=== PATIENT | male | born 1970 | race Caucasian/White ===

== ENCOUNTER 2016-05-28 13:56 | Emergency (ER) | payer MEDICARE, MEDICAID ==
[~2016-05-28 13:56] MED LIST: ASPI81TA85 PO; BACL-67 PO; DICL500C PO; DICLOFENAC PO; DULO30CA PO; EUCECRE2 EX; HEPA10PFSY IV; KLOR10TA5 PO; LASI40TA PO; NICO14PA EXT; OXYC15TA76 PO; PERCOCET PO; POTA10TA PO; TOPA100T8 PO; TOPA25TA10 PO; TOPA50TA7 PO; TYLE325T5 PO; WELL100T PO; [UNRECOGNIZED DRUG - REMARK] PO
[2016-05-28 15:35] LABS: ANION GAP 9 MEQ/L (8-16); BLOOD UREA NITROGEN 9 MG/DL (7-18); CALCIUM LEVEL 8.3 MG/DL (8.5-10.1); CARBON DIOXIDE LEVEL 29 MEQ/L (21-32); CHLORIDE LEVEL 103 MEQ/L (98-107); CREATININE FOR GFR 0.85 MG/DL (0.70-1.30); GLOMERULAR FILTRATION RATE > 60.0 (>60); GLUCOSE, FASTING 119 MG/DL (70-105); SODIUM LEVEL 141 MEQ/L (136-145)
[2016-05-28 15:39] LABS: MEAN CORPUSCULAR HEMOGLOBIN 22.9 pg (27.0-33.0); MEAN CORPUSCULAR HGB CONC 29.7 g/dl (32.0-36.5); MEAN CORPUSCULAR VOLUME 77.1 fl (80.0-96.0); RED CELL DISTRIBUTION WIDTH 17.1 % (11.5-14.5); WHITE BLOOD COUNT 8.2 K/mm3 (4.0-10.0)
--- NOTE | 2016-05-28 16:18 | REP ---
Left foot series: Portably obtained AP and lateral views. History: Pain. Findings: Two views of the left foot demonstrate marked diffuse soft tissue swelling particularly in the forefoot. No opaque foreign body or soft tissue gas is seen. No bony erosive changes seen. Mild midfoot arthritic spurring is seen. There is mild hallux valgus. Impression: Marked soft tissue swelling. Midfoot spurring. No acute bony abnormality. No opaque foreign body or soft tissue gas seen. Signed by Evaristo Cedeno MD 05/28/2016 04:48 P
--- NOTE | 2016-05-28 17:21 | EDDOCDS ---
Nurse's Notes [facility] Name: Walt Croft Age: 46 yrs Sex: Male : 1970 Arrival Date: 05/28/2016 Time: 13:56 Bed 10 Private MD: Darvin Abbasi MD Diagnosis: Pain in left foot Presentation: 05/28 14:03 Presenting complaint: Patient states: Pt presents with pain and pressure left heel dls onset one week ago denies injury. Pt has a difficulty ambulating recently dx with diabetes. Adult Sepsis Screening: The patient does not have new or worsening altered mentation. Patient has a respiratory rate of greater than or equal to 22 (1 point). Systolic blood pressure is greater than 100. Patient has a qSOFA score of 1- Negative Sepsis Screen. Suicide/Homicide risk assessment- the patient denies having any suicidal and/or homicidal ideations and does not present with any other emotional, behavioral or mental health complaints. Status: Patient is not a media services specialist or dependent. Transition of care: patient was not received from another setting of care. 14:03 Acuity: JIGNESH Level 3 dls 14:03 Method Of Arrival: Walkin/Carried/Asstd dls Triage Assessment: 14:08 General: Appears obese, uncomfortable, Behavior is cooperative. Pain: Pain currently is dls 10 out of 10 on a pain scale. HIV screening NA for this visit Offered previously. Historical: - Allergies: no known allergies; - Home Meds: 1. pregabalin 25 mg Oral cap twice a day 2. metformin 500 mg Oral tab 1 tab 2 times per day 3. potassium chloride 20 mEq/15 mL Oral liqd 4 times per day 4. furosemide 80 mg Oral tab 1 tab four times a day - PMHx: Diabetes - NIDDM: controlled; lymphedema; - PSHx: vein ablation leg; infusaport; - Social history: Smoking status: Patient uses tobacco products, light tobacco smoker. No barriers to communication noted, The patient speaks fluent Slovenian. - Family history: Not pertinent. - : The pt / caregiver states he / she is not on anticoagulants. Home medication list is obtained from the patient. - Exposure Risk Screening:: None identified. Screenin:44 Screening information is obtained from the patient. Fall risk: At risk due to gait js13 disturbance. Assistance ADL's: requires no assistance with activities of daily living. Abuse/DV Screen: The patient / caregiver reports he/she is: not in a situation that causes fear, pain or injury. Nutritional screening: No deficits noted. Advance Directives: There is no active DNR order. home support is adequate. Assessment: 14:44 Pain: Location: left foot. Neurological: Level of Consciousness is awake, alert. js13 Respiratory: Airway is patent Respiratory effort is even, unlabored, Respiratory pattern is regular, symmetrical. Derm: Skin is pink, warm & dry. Musculoskeletal: Circulation, motion, and sensation intact. 16:00 General: Appears in no apparent distress, Behavior is appropriate for age, cooperative. js13 Pain: Location: left foot. Neurological: Level of Consciousness is awake, alert. Respiratory: Airway is patent Respiratory effort is even, unlabored, Respiratory pattern is regular, symmetrical. Derm: Skin is pink, warm & dry. 16:51 General: Appears in no apparent distress, Behavior is appropriate for age, cooperative. js13 Pain: Location: left foot Pain currently is 4 out of 10 on a pain scale. Neurological: Level of Consciousness is awake, alert. Respiratory: Airway is patent Respiratory effort is even, unlabored, Respiratory pattern is regular, symmetrical. Derm: Skin is pink, warm & dry. 17:18 Adult Sepsis Screening: The patient does not have new or worsening altered mentation. js13 Patient's respiratory rate is less than 22. Systolic blood pressure is greater than 100. Patient has a qSOFA score of 0- Negative Sepsis Screen. General: Appears in no apparent distress, Behavior is appropriate for age, cooperative. General: Appears obese, unkempt. Pain: Location: left foot Pain currently is 5 out of 10 on a pain scale. Neurological: Level of Consciousness is awake, alert. Respiratory: Airway is patent Respiratory effort is even, unlabored, Respiratory pattern is regular, symmetrical. Derm: Skin is pink, warm & dry. Vital Signs: 13:58 BP 151 / 81; Pulse 122; Resp 22 S; Temp 97.7(O); Pulse Ox 96% on R/A; Weight 224.53 kg gr2 (R); Height 5 ft. 8 in. (172.72 cm) (R); Pain 9/10; 16:53 BP 140 / 66; Pulse 109; Resp 18; Temp 97.3(O); Pulse Ox 97% on R/A; ct3 13:58 Body Mass Index 75.26 (224.53 kg, 172.72 cm) gr2 Vitals: 13:58 Log In Time: May 28, 2016 at 13:58. gr2 ED Course: 13:57 Patient visited by Maurice Osman. gr2 13:57 Darvin Abbasi is Private Physician. gr2 13:57 Patient moved to Waiting gr2 13:59 Patient visited by Maurice Osman. gr2 13:59 Patient moved to Pre RCE gr2 14:04 Triage Initiated dls 14:11 Patient moved to 10 ms18 14:27 Patient visited by Dave Castelan PCA. mdr 14:29 [facility] ke 14:29 Patient visited by Kwame Haywood FNP. ke 14:29 Patient visited by Kwame Haywood FNP. ke 14:44 The patient / caregiver is instructed regarding the plan of care and ED course. js13 14:47 Patient visited by Shelli Núñez RN. js13 15:00 Wound Culture - Most Extremities Sent. js13 15:14 Patient moved to Radiology es5 15:14 Patient moved to 10 es5 15:17 Patient visited by Kwame Haywood FNP. ke 15:22 Shelli Núñez,KASSANDRA is Primary Nurse. js13 15:48 Patient visited by Kwame Haywood FNP. ke 15:58 BLOOD CULTURES Sent. js13 16:10 Patient visited by Kwame Haywood FNP. ke 16:19 Foot, Complete Returned. EDMS 16:24 Patient visited by Shelli Núñez RN. js13 16:48 Patient visited by Kwame Haywood FNP. ke 16:50 Darvin Abbasi is Referral Physician. ke 16:50 Des Posey DPM is Referral Physician. ke 16:51 No IV's were initiated during this patient's visit. No procedures done that require [facility] assistance. 16:56 Patient visited by Chiuqis Jesus PCA. ct3 Order Results: Lab Order: CBC; SPEC'M 05/28/16 15:13 Test: WHITE BLOOD COUNT; Value: 8.2; Range: 4.0-10.0; Units: K/mm3; Status: F Test: RED BLOOD COUNT; Value: 6.06; Range: 4.30-6.10; Units: M/mm3; Status: F Test: HEMOGLOBIN; Value: 13.9; Range: 14.0-18.0; Abnormal: Below low normal; Units: g/dl; Status: F Test: HEMATOCRIT; Value: 46.8; Range: 42.0-52.0; Units: %; Status: F Test: MEAN CORPUSCULAR VOLUME; Value: 77.1; Range: 80.0-96.0; Abnormal: Below low normal; Units: fl; Status: F Test: MEAN CORPUSCULAR HEMOGLOBIN; Value: 22.9; Range: 27.0-33.0; Abnormal: Below low normal; Units: pg; Status: F Test: MEAN CORPUSCULAR HGB CONC; Value: 29.7; Range: 32.0-36.5; Abnormal: Below low normal; Units: g/dl; Status: F Test: RED CELL DISTRIBUTION WIDTH; Value: 17.1; Range: 11.5-14.5; Abnormal: Above high normal; Units: %; Status: F Test: PLATELET COUNT, AUTOMATED; Value: 227; Range: 150-450; Units: k/mm3; Status: F Lab Order: [facility]; SPEC'M 05/28/16 15:13 Test: GLUCOSE, FASTING; Value: 119; Range: 70-105; Abnormal: Above high normal; Units: MG/DL; Status: F Test: BLOOD UREA NITROGEN; Value: 9; Range: 7-18; Units: MG/DL; Status: F Test: CREATININE FOR GFR; Value: 0.85; Range: 0.70-1.30; Units: MG/DL; Status: F Test: GLOMERULAR FILTRATION RATE; Value: > 60.0; Range: >60; Status: F Test: SODIUM LEVEL; Value: 141; Range: 136-145; Units: MEQ/L; Status: F Test: POTASSIUM SERUM; Value: 4.0; Range: 3.5-5.1; Units: MEQ/L; Status: F Test: CHLORIDE LEVEL; Value: 103; Range: 98-107; Units: MEQ/L; Status: F Test: CARBON DIOXIDE LEVEL; Value: 29; Range: 21-32; Units: MEQ/L; Status: F Test: ANION GAP; Value: 9; Range: 8-16; Units: MEQ/L; Status: F Test: CALCIUM LEVEL; Value: 8.3; Range: 8.5-10.1; Abnormal: Below low normal; Units: MG/DL; Status: F Test Note: ; Units are mL/min/1.73 m2 Chronic Kidney Disease Staging per NKF: Stage I & II GFR >=60 Normal to Mildly Decreased Stage III GFR 30-59 Moderately Decreased Stage IV GFR 15-29 Severely Decreased Stage V GFR <15 Very Little GFR Left ESRD GFR <15 on [place] [employer] Radiology Order: Foot, Complete Test: Foot, Complete REASON FOR EXAMINATION: pain; Left foot series: Portably obtained AP and lateral views.; ; History: Pain.; ; Findings: Two views of the left foot demonstrate marked diffuse soft tissue; swelling particularly in the forefoot. No opaque foreign body or soft tissue gas; is seen. No bony erosive changes seen. Mild midfoot arthritic spurring is seen.; There is mild hallux valgus.; ; Impression:; ; Marked soft tissue swelling. Midfoot spurring. No acute bony abnormality. No; opaque foreign body or soft tissue gas seen.; ; ; Signed by; Evaristo Cedeno MD 05/28/2016 04:48 P; Outcome: 16:50 Discharge ordered by Provider. 16:51 Discharge Assessment: Patient awake, alert and oriented x 3. No cognitive and/or js13 functional deficits noted. Patient verbalized understanding of disposition instructions. patient administered narcotics - no. The following High Risk Discharge criteria are identified: None. Discharged to home ambulatory, with significant other. Condition: stable. No special radiology studies were completed. Property sent home with patient. :Personal belongings accompany Pt. 17:19 Discharge instructions given to patient, Instructed on discharge instructions, follow js13 up and referral plans. medication usage, Demonstrated understanding of instructions, medications, Pt was receptive of discharge instructions/ teaching. Prescriptions given X 1. 17:20 Patient left the ED. js13 Signatures: Dispatcher [employer] EDMS Irene Henriquez, RN RN Kwame Lopez, E COMMERCE SPECIALIST E COMMERCE SPECIALIST ke Chiquis Jesus, BREAD WRAPPER BREAD WRAPPER ct3 Shelli Núñez RN RN js13 Savannah Danielson es5 Maurice Osman gr2 Essence Kumar,RN RN ms18 Dave Castelan, BREAD WRAPPER BREAD WRAPPER mdr Corrections: (The following items were deleted from the chart) 16:57 16:53 BP 140 / 66; Pulse 109bpm; Resp 18bpm; Pulse Ox 97% RA; Temp 97.3F Oral; Pain ct3 10/10; ct3 MTDD
--- NOTE | 2016-05-28 17:22 | EDDOCDS ---
Physician Documentation [facility] Name: Walt Croft Age: 46 yrs Sex: Male : 1970 Arrival Date: 05/28/2016 Time: 13:56 Bed 10 Private MD: Darvin Abbais MD Disposition: 05/28/16 16:50 Discharged to Home/Self Care. Impression: Pain in left foot. - Condition is Stable. - Discharge Instructions: Pain Without a Known Cause. - Prescriptions for [place] 5- 325 mg Oral Tablet - take 1 tablet by ORAL route every 6 hours As needed MDD: 4 tabs; 20 tablet. - Medication Reconciliation, Local Pharmacy Hours form. - Follow up: Darvin Abbasi; When: 4 - 5 days; Reason: Recheck today's complaints, Continuance of care. Follow up: Des Posey DPM; When: As soon as possible; Reason: Recheck today's complaints, Continuance of care. - Problem is an ongoing problem. - Symptoms are unchanged. - Notes: elevate foot Historical: - Allergies: no known allergies; - Home Meds: 1. pregabalin 25 mg Oral cap twice a day 2. metformin 500 mg Oral tab 1 tab 2 times per day 3. potassium chloride 20 mEq/15 mL Oral liqd 4 times per day 4. furosemide 80 mg Oral tab 1 tab four times a day - PMHx: Diabetes - NIDDM: controlled; lymphedema; - PSHx: vein ablation leg; infusaport; - Social history: Smoking status: Patient uses tobacco products, light tobacco smoker. No barriers to communication noted, The patient speaks fluent Maltese. - Family history: Not pertinent. - : The pt / caregiver states he / she is not on anticoagulants. Home medication list is obtained from the patient. - Exposure Risk Screening:: None identified. Vital Signs: 05/28 13:58 BP 151 / 81; Pulse 122; Resp 22 S; Temp 97.7(O); Pulse Ox 96% on R/A; Weight 224.53 kg gr2 / 495 lbs (R); Height 5 ft. 8 in. (172.72 cm) (R); Pain 9/10; 16:53 BP 140 / 66; Pulse 109; Resp 18; Temp 97.3(O); Pulse Ox 97% on R/A; ct3 13:58 Body Mass Index 75.26 (224.53 kg, 172.72 cm) gr2 MDM: 14:48 -Blood Culture (Adults Only), peripheral from different site, or from device/port/PICC ke etc. if present ordered. 14:48 CBC Ordered. EDMS 14:48 BMP Ordered. EDMS 14:48 -Blood Culture Ordered. EDMS 14:48 Wound Culture - Most Extremities Ordered. EDMS 14:50 Foot, Complete Ordered. EDMS 14:51 -Blood Culture (Adults Only), peripheral from different site, or from device/port/PICC jlf etc. if present complete. 14:52 BLOOD CULTURES Ordered. EDMS 16:10 CBC Reviewed. ke 16:10 BMP Reviewed. ke 16:40 Financial registration complete. zo Signatures: Dispatcher [employer] EDIrene Palmer, RN RN Kwame Lopez, BRANCH CHIEF BRANCH CHIEF Debi Ramos JenniferRN RN js13 Checo Rogers, ENGRAVER ORNAMENTAL DESIGN ENGRAVER ORNAMENTAL DESIGN jl The chart was reviewed and I authenticate all verbal orders and agree with the evaluation and treatment provided.Corrections: (The following items were deleted from the chart) 15:37 15:31 Wound Culture - Extremity+CLARK ordered. EDMS EDMS 16:51 14:48 Misc. Nursing Order ordered. joaquín js13 MTDD
--- NOTE | 2016-05-30 18:21 | EDDOCDS ---
Physician Documentation [facility] Name: Walt Croft Age: 46 yrs Sex: Male : 1970 Arrival Date: 05/28/2016 Time: 13:56 Bed 10 Private MD: Darvin Abbasi MD Disposition: 05/28/16 16:50 Discharged to Home/Self Care. Impression: Pain in left foot. - Condition is Stable. - Discharge Instructions: Pain Without a Known Cause. - Prescriptions for Sup[place] 5- 325 mg Oral Tablet - take 1 tablet by ORAL route every 6 hours As needed MDD: 4 tabs; 20 tablet. - Medication Reconciliation, Local Pharmacy Hours form. - Follow up: Darvin Abbasi; When: 4 - 5 days; Reason: Recheck today's complaints, Continuance of care. Follow up: Des Posey DPM; When: As soon as possible; Reason: Recheck today's complaints, Continuance of care. - Problem is an ongoing problem. - Symptoms are unchanged. - Notes: elevate foot Historical: - Allergies: no known allergies; - Home Meds: 1. pregabalin 25 mg Oral cap twice a day 2. metformin 500 mg Oral tab 1 tab 2 times per day 3. potassium chloride 20 mEq/15 mL Oral liqd 4 times per day 4. furosemide 80 mg Oral tab 1 tab four times a day - PMHx: Diabetes - NIDDM: controlled; lymphedema; - PSHx: vein ablation leg; infusaport; - Social history: Smoking status: Patient uses tobacco products, light tobacco smoker. No barriers to communication noted, The patient speaks fluent Azeri. - Family history: Not pertinent. - : The pt / caregiver states he / she is not on anticoagulants. Home medication list is obtained from the patient. - Exposure Risk Screening:: None identified. Vital Signs: 05/28 13:58 BP 151 / 81; Pulse 122; Resp 22 S; Temp 97.7(O); Pulse Ox 96% on R/A; Weight 224.53 kg gr2 / 495 lbs (R); Height 5 ft. 8 in. (172.72 cm) (R); Pain 9/10; 16:53 BP 140 / 66; Pulse 109; Resp 18; Temp 97.3(O); Pulse Ox 97% on R/A; ct3 13:58 Body Mass Index 75.26 (224.53 kg, 172.72 cm) gr2 MDM: 14:48 -Blood Culture (Adults Only), peripheral from different site, or from device/port/PICC ke etc. if present ordered. 14:48 CBC Ordered. EDMS 14:48 BMP Ordered. EDMS 14:48 -Blood Culture Ordered. EDMS 14:48 Wound Culture - Most Extremities Ordered. EDMS 14:50 Foot, Complete Ordered. EDMS 14:51 -Blood Culture (Adults Only), peripheral from different site, or from device/port/PICC jlf etc. if present complete. 14:52 BLOOD CULTURES Ordered. EDMS 16:10 CBC Reviewed. ke 16:10 BMP Reviewed. joaquín 16:40 Financial registration complete. zo 17:41 [facility] Payment Agreement was scanned into [employer] and attached to record. zo 05/29 10:21 T-Sheet-- Draft Copy was scanned into [employer] and attached to record. gb Signatures: Dispatcher [employer] Irene Lakhani, KASSANDRA RN dls Tiffani Yoo, Reg Reg Kwame Sanchez, GEODETIC TECHNICIAN GEODETIC TECHNICIAN Debi Ramos Jennifer,RN RN js13 Checo Rogers, SAND MIXER SAND MIXER jlf The chart was reviewed and I authenticate all verbal orders and agree with the evaluation and treatment provided.Corrections: (The following items were deleted from the chart) 05/28 15:37 15:31 Wound Culture - Extremity+CLARK ordered. EDMS EDMS 16:51 14:48 Misc. Nursing Order ordered. joaquín [email or web address] Attachments: 17:41 [place] Payment Agreement zo 05/29 10:21 T-Sheet-- Draft Copy gb Chart Complete MTDD
--- NOTE | 2016-05-30 18:21 | EDDOCDS ---
Nurse's Notes [facility] Name: Walt Croft Age: 46 yrs Sex: Male : 1970 Arrival Date: 05/28/2016 Time: 13:56 Bed 10 Private MD: Darvin Abbasi MD Diagnosis: Pain in left foot Presentation: 05/28 14:03 Presenting complaint: Patient states: Pt presents with pain and pressure left heel dls onset one week ago denies injury. Pt has a difficulty ambulating recently dx with diabetes. Adult Sepsis Screening: The patient does not have new or worsening altered mentation. Patient has a respiratory rate of greater than or equal to 22 (1 point). Systolic blood pressure is greater than 100. Patient has a qSOFA score of 1- Negative Sepsis Screen. Suicide/Homicide risk assessment- the patient denies having any suicidal and/or homicidal ideations and does not present with any other emotional, behavioral or mental health complaints. Status: Patient is not a food service aide or dependent. Transition of care: patient was not received from another setting of care. 14:03 Acuity: JIGNESH Level 3 dls 14:03 Method Of Arrival: Walkin/Carried/Asstd dls Triage Assessment: 14:08 General: Appears obese, uncomfortable, Behavior is cooperative. Pain: Pain currently is dls 10 out of 10 on a pain scale. HIV screening NA for this visit Offered previously. Historical: - Allergies: no known allergies; - Home Meds: 1. pregabalin 25 mg Oral cap twice a day 2. metformin 500 mg Oral tab 1 tab 2 times per day 3. potassium chloride 20 mEq/15 mL Oral liqd 4 times per day 4. furosemide 80 mg Oral tab 1 tab four times a day - PMHx: Diabetes - NIDDM: controlled; lymphedema; - PSHx: vein ablation leg; infusaport; - Social history: Smoking status: Patient uses tobacco products, light tobacco smoker. No barriers to communication noted, The patient speaks fluent Ukrainian. - Family history: Not pertinent. - : The pt / caregiver states he / she is not on anticoagulants. Home medication list is obtained from the patient. - Exposure Risk Screening:: None identified. Screenin:44 Screening information is obtained from the patient. Fall risk: At risk due to gait js13 disturbance. Assistance ADL's: requires no assistance with activities of daily living. Abuse/DV Screen: The patient / caregiver reports he/she is: not in a situation that causes fear, pain or injury. Nutritional screening: No deficits noted. Advance Directives: There is no active DNR order. home support is adequate. Assessment: 14:44 Pain: Location: left foot. Neurological: Level of Consciousness is awake, alert. js13 Respiratory: Airway is patent Respiratory effort is even, unlabored, Respiratory pattern is regular, symmetrical. Derm: Skin is pink, warm & dry. Musculoskeletal: Circulation, motion, and sensation intact. 16:00 General: Appears in no apparent distress, Behavior is appropriate for age, cooperative. js13 Pain: Location: left foot. Neurological: Level of Consciousness is awake, alert. Respiratory: Airway is patent Respiratory effort is even, unlabored, Respiratory pattern is regular, symmetrical. Derm: Skin is pink, warm & dry. 16:51 General: Appears in no apparent distress, Behavior is appropriate for age, cooperative. js13 Pain: Location: left foot Pain currently is 4 out of 10 on a pain scale. Neurological: Level of Consciousness is awake, alert. Respiratory: Airway is patent Respiratory effort is even, unlabored, Respiratory pattern is regular, symmetrical. Derm: Skin is pink, warm & dry. 17:18 Adult Sepsis Screening: The patient does not have new or worsening altered mentation. js13 Patient's respiratory rate is less than 22. Systolic blood pressure is greater than 100. Patient has a qSOFA score of 0- Negative Sepsis Screen. General: Appears in no apparent distress, Behavior is appropriate for age, cooperative. General: Appears obese, unkempt. Pain: Location: left foot Pain currently is 5 out of 10 on a pain scale. Neurological: Level of Consciousness is awake, alert. Respiratory: Airway is patent Respiratory effort is even, unlabored, Respiratory pattern is regular, symmetrical. Derm: Skin is pink, warm & dry. Vital Signs: 13:58 BP 151 / 81; Pulse 122; Resp 22 S; Temp 97.7(O); Pulse Ox 96% on R/A; Weight 224.53 kg gr2 (R); Height 5 ft. 8 in. (172.72 cm) (R); Pain 9/10; 16:53 BP 140 / 66; Pulse 109; Resp 18; Temp 97.3(O); Pulse Ox 97% on R/A; ct3 13:58 Body Mass Index 75.26 (224.53 kg, 172.72 cm) gr2 Vitals: 13:58 Log In Time: May 28, 2016 at 13:58. gr2 ED Course: 13:57 Patient visited by Maurice Osman. gr2 13:57 Darvin Abbasi is Private Physician. gr2 13:57 Patient moved to Waiting gr2 13:59 Patient visited by Maurice Osman. gr2 13:59 Patient moved to Pre RCE gr2 14:04 Triage Initiated dls 14:11 Patient moved to 10 ms18 14:27 Patient visited by Dave Castelan PCA. mdr 14:29 Kwame Haywood FNP is PHCP. ke 14:29 Patient visited by Kwame Haywood FNP. ke 14:29 Patient visited by Kwame Haywood FNP. ke 14:44 The patient / caregiver is instructed regarding the plan of care and ED course. js13 14:47 Patient visited by Shelli Núñez RN. js13 15:00 Wound Culture - Most Extremities Sent. js13 15:14 Patient moved to Radiology es5 15:14 Patient moved to 10 es5 15:17 Patient visited by Kwame Haywood FNP. ke 15:22 Shelli Núñez,KASSANDRA is Primary Nurse. js13 15:48 Patient visited by Kwame Haywood FNP. ke 15:58 BLOOD CULTURES Sent. js13 16:10 Patient visited by Kwame Haywood FNP. ke 16:19 Foot, Complete Returned. EDMS 16:24 Patient visited by Shelli Núñez RN. js13 16:48 Patient visited by Kwame Haywood FNP. ke 16:50 Darvin Abbasi is Referral Physician. ke 16:50 Des Posey DPM is Referral Physician. ke 16:51 No IV's were initiated during this patient's visit. No procedures done that require rust assistance. 16:56 Patient visited by Chiquis Jesus PCA. ct3 17:41 [facility] Payment Agreement was scanned into [employer] and attached to record. zo 05/29 10:21 T-Sheet-- Draft Copy was scanned into [employer] and attached to record. gb Order Results: Lab Order: CBC; SPEC'M 05/28/16 15:13 Test: WHITE BLOOD COUNT; Value: 8.2; Range: 4.0-10.0; Units: K/mm3; Status: F Test: RED BLOOD COUNT; Value: 6.06; Range: 4.30-6.10; Units: M/mm3; Status: F Test: HEMOGLOBIN; Value: 13.9; Range: 14.0-18.0; Abnormal: Below low normal; Units: g/dl; Status: F Test: HEMATOCRIT; Value: 46.8; Range: 42.0-52.0; Units: %; Status: F Test: MEAN CORPUSCULAR VOLUME; Value: 77.1; Range: 80.0-96.0; Abnormal: Below low normal; Units: fl; Status: F Test: MEAN CORPUSCULAR HEMOGLOBIN; Value: 22.9; Range: 27.0-33.0; Abnormal: Below low normal; Units: pg; Status: F Test: MEAN CORPUSCULAR HGB CONC; Value: 29.7; Range: 32.0-36.5; Abnormal: Below low normal; Units: g/dl; Status: F Test: RED CELL DISTRIBUTION WIDTH; Value: 17.1; Range: 11.5-14.5; Abnormal: Above high normal; Units: %; Status: F Test: PLATELET COUNT, AUTOMATED; Value: 227; Range: 150-450; Units: k/mm3; Status: F Lab Order: BMP; SPEC'M 05/28/16 15:13 Test: GLUCOSE, FASTING; Value: 119; Range: 70-105; Abnormal: Above high normal; Units: MG/DL; Status: F Test: BLOOD UREA NITROGEN; Value: 9; Range: 7-18; Units: MG/DL; Status: F Test: CREATININE FOR GFR; Value: 0.85; Range: 0.70-1.30; Units: MG/DL; Status: F Test: GLOMERULAR FILTRATION RATE; Value: > 60.0; Range: >60; Status: F Test: SODIUM LEVEL; Value: 141; Range: 136-145; Units: MEQ/L; Status: F Test: POTASSIUM SERUM; Value: 4.0; Range: 3.5-5.1; Units: MEQ/L; Status: F Test: CHLORIDE LEVEL; Value: 103; Range: 98-107; Units: MEQ/L; Status: F Test: CARBON DIOXIDE LEVEL; Value: 29; Range: 21-32; Units: MEQ/L; Status: F Test: ANION GAP; Value: 9; Range: 8-16; Units: MEQ/L; Status: F Test: CALCIUM LEVEL; Value: 8.3; Range: 8.5-10.1; Abnormal: Below low normal; Units: MG/DL; Status: F Test Note: ; Units are mL/min/1.73 m2 Chronic Kidney Disease Staging per NKF: Stage I & II GFR >=60 Normal to Mildly Decreased Stage III GFR 30-59 Moderately Decreased Stage IV GFR 15-29 Severely Decreased Stage V GFR <15 Very Little GFR Left ESRD GFR <15 on INTERIOR PAINTER Lab Order: -Blood Culture; SPEC'M 05/28/16 15:13 Test: BLOOD CULTURE; Value: No growth after 24 hours . All specimens observed; Status: F Test: BLOOD CULTURE; Value: for 5 days. Results final at that time.; Status: F Test: BLOOD CULTURE; Value: No Growth after 48 hours. All Specimens observed; Status: F Test: BLOOD CULTURE; Value: for 7 days. Results final at that time.; Status: F Lab Order: BLOOD CULTURES; SPEC'M 05/28/16 16:01 Test: BLOOD CULTURE; Value: No growth after 24 hours . All specimens observed; Status: F Test: BLOOD CULTURE; Value: for 5 days. Results final at that time.; Status: F Test: BLOOD CULTURE; Value: No Growth after 48 hours. All Specimens observed; Status: F Test: BLOOD CULTURE; Value: for 7 days. Results final at that time.; Status: F Radiology Order: Foot, Complete Test: Foot, Complete REASON FOR EXAMINATION: pain; Left foot series: Portably obtained AP and lateral views.; ; History: Pain.; ; Findings: Two views of the left foot demonstrate marked diffuse soft tissue; swelling particularly in the forefoot. No opaque foreign body or soft tissue gas; is seen. No bony erosive changes seen. Mild midfoot arthritic spurring is seen.; There is mild hallux valgus.; ; Impression:; ; Marked soft tissue swelling. Midfoot spurring. No acute bony abnormality. No; opaque foreign body or soft tissue gas seen.; ; ; Signed by; Evaristo Cedeno MD 05/28/2016 04:48 P; Outcome: 05/28 16:50 Discharge ordered by Provider. joaquín 16:51 Discharge Assessment: Patient awake, alert and oriented x 3. No cognitive and/or js13 functional deficits noted. Patient verbalized understanding of disposition instructions. patient administered narcotics - no. The following High Risk Discharge criteria are identified: None. Discharged to home ambulatory, with significant other. Condition: stable. No special radiology studies were completed. Property sent home with patient. :Personal belongings accompany Pt. 17:19 Discharge instructions given to patient, Instructed on discharge instructions, follow js13 up and referral plans. medication usage, Demonstrated understanding of instructions, medications, Pt was receptive of discharge instructions/ teaching. Prescriptions given X 1. 17:20 Patient left the ED. js13 Signatures: Dispatcher [employer] EDMS Irene Henriquez, RN RN dls Barnhsofiat, Tiffani, Reg Reg gb Kwame Haywood, LIQUOR GRINDER MILL OPERATOR LIQUOR GRINDER MILL OPERATOR Debi Ramos Consuelo, MANAGER OF INTERNAL MANAGER OF INTERNAL ct3 Shelli Núñez,RN RN js13 Savannah Danielson es5 Maurice Osman gr2 Essence Kumar,RN RN ms18 Dave Castelan, MANAGER OF INTERNAL MANAGER OF INTERNAL mdr Corrections: (The following items were deleted from the chart) 16:57 16:53 BP 140 / 66; Pulse 109bpm; Resp 18bpm; Pulse Ox 97% RA; Temp 97.3F Oral; Pain ct3 10/10; ct3 Chart Complete MTDD
--- NOTE | 2016-05-30 18:21 | EDDOCDS ---
Physician Documentation [facility] Name: Walt Croft Age: 46 yrs Sex: Male : 1970 Arrival Date: 05/28/2016 Time: 13:56 Bed 10 Private MD: Darvin Abbasi MD Disposition: 05/28/16 16:50 Discharged to Home/Self Care. Impression: Pain in left foot. - Condition is Stable. - Discharge Instructions: Pain Without a Known Cause. - Prescriptions for [place] 5- 325 mg Oral Tablet - take 1 tablet by ORAL route every 6 hours As needed MDD: 4 tabs; 20 tablet. - Medication Reconciliation, Local Pharmacy Hours form. - Follow up: Darvin Abbasi; When: 4 - 5 days; Reason: Recheck today's complaints, Continuance of care. Follow up: Des Posey DPM; When: As soon as possible; Reason: Recheck today's complaints, Continuance of care. - Problem is an ongoing problem. - Symptoms are unchanged. - Notes: elevate foot Historical: - Allergies: no known allergies; - Home Meds: 1. pregabalin 25 mg Oral cap twice a day 2. metformin 500 mg Oral tab 1 tab 2 times per day 3. potassium chloride 20 mEq/15 mL Oral liqd 4 times per day 4. furosemide 80 mg Oral tab 1 tab four times a day - PMHx: Diabetes - NIDDM: controlled; lymphedema; - PSHx: vein ablation leg; infusaport; - Social history: Smoking status: Patient uses tobacco products, light tobacco smoker. No barriers to communication noted, The patient speaks fluent Kyrgyz. - Family history: Not pertinent. - : The pt / caregiver states he / she is not on anticoagulants. Home medication list is obtained from the patient. - Exposure Risk Screening:: None identified. Vital Signs: 05/28 13:58 BP 151 / 81; Pulse 122; Resp 22 S; Temp 97.7(O); Pulse Ox 96% on R/A; Weight 224.53 kg gr2 / 495 lbs (R); Height 5 ft. 8 in. (172.72 cm) (R); Pain 9/10; 16:53 BP 140 / 66; Pulse 109; Resp 18; Temp 97.3(O); Pulse Ox 97% on R/A; ct3 13:58 Body Mass Index 75.26 (224.53 kg, 172.72 cm) gr2 MDM: 14:48 -Blood Culture (Adults Only), peripheral from different site, or from device/port/PICC ke etc. if present ordered. 14:48 CBC Ordered. EDMS 14:48 BMP Ordered. EDMS 14:48 -Blood Culture Ordered. EDMS 14:48 Wound Culture - Most Extremities Ordered. EDMS 14:50 Foot, Complete Ordered. EDMS 14:51 -Blood Culture (Adults Only), peripheral from different site, or from device/port/PICC jlf etc. if present complete. 14:52 BLOOD CULTURES Ordered. EDMS 16:10 CBC Reviewed. ke 16:10 BMP Reviewed. joaquín 16:40 Financial registration complete. zo 17:41 [facility] Payment Agreement was scanned into [employer] and attached to record. zo 05/29 10:21 T-Sheet-- Draft Copy was scanned into [employer] and attached to record. gb Signatures: Dispatcher [employer] Irene Lakhani, KASSANDRA RN dls Tiffani Yoo, Reg Reg Kwame Sanchez, CENTERLESS GRINDER SET UP OPERATOR CENTERLESS GRINDER SET UP OPERATOR Debi Ramos Jennifer,RN RN js13 Checo Rogers, SIGNWRITER SIGNWRITER jlf The chart was reviewed and I authenticate all verbal orders and agree with the evaluation and treatment provided.Corrections: (The following items were deleted from the chart) 05/28 15:37 15:31 Wound Culture - Extremity+CLARK ordered. EDMS EDMS 16:51 14:48 Misc. Nursing Order ordered. joaquín [email or web address] Attachments: 17:41 [facility] Payment Agreement zo 05/29 10:21 T-Sheet-- Draft Copy gb Chart Complete MTDD
--- NOTE | 2016-06-02 09:33 | EDDOCDS ---
Nurse's Notes [facility] Name: Walt Croft Age: 46 yrs Sex: Male : 1970 Arrival Date: 05/28/2016 Time: 13:56 Bed 10 Private MD: Darvin Abbasi MD Diagnosis: Pain in left foot Presentation: 05/28 14:03 Presenting complaint: Patient states: Pt presents with pain and pressure left heel dls onset one week ago denies injury. Pt has a difficulty ambulating recently dx with diabetes. Adult Sepsis Screening: The patient does not have new or worsening altered mentation. Patient has a respiratory rate of greater than or equal to 22 (1 point). Systolic blood pressure is greater than 100. Patient has a qSOFA score of 1- Negative Sepsis Screen. Suicide/Homicide risk assessment- the patient denies having any suicidal and/or homicidal ideations and does not present with any other emotional, behavioral or mental health complaints. Status: Patient is not a creative services specialist or dependent. Transition of care: patient was not received from another setting of care. 14:03 Acuity: JIGNESH Level 3 dls 14:03 Method Of Arrival: Walkin/Carried/Asstd dls Triage Assessment: 14:08 General: Appears obese, uncomfortable, Behavior is cooperative. Pain: Pain currently is dls 10 out of 10 on a pain scale. HIV screening NA for this visit Offered previously. Historical: - Allergies: no known allergies; - Home Meds: 1. pregabalin 25 mg Oral cap twice a day 2. metformin 500 mg Oral tab 1 tab 2 times per day 3. potassium chloride 20 mEq/15 mL Oral liqd 4 times per day 4. furosemide 80 mg Oral tab 1 tab four times a day - PMHx: Diabetes - NIDDM: controlled; lymphedema; - PSHx: vein ablation leg; infusaport; - Social history: Smoking status: Patient uses tobacco products, light tobacco smoker. No barriers to communication noted, The patient speaks fluent Vietnamese. - Family history: Not pertinent. - : The pt / caregiver states he / she is not on anticoagulants. Home medication list is obtained from the patient. - Exposure Risk Screening:: None identified. Screenin:44 Screening information is obtained from the patient. Fall risk: At risk due to gait js13 disturbance. Assistance ADL's: requires no assistance with activities of daily living. Abuse/DV Screen: The patient / caregiver reports he/she is: not in a situation that causes fear, pain or injury. Nutritional screening: No deficits noted. Advance Directives: There is no active DNR order. home support is adequate. Assessment: 14:44 Pain: Location: left foot. Neurological: Level of Consciousness is awake, alert. js13 Respiratory: Airway is patent Respiratory effort is even, unlabored, Respiratory pattern is regular, symmetrical. Derm: Skin is pink, warm & dry. Musculoskeletal: Circulation, motion, and sensation intact. 16:00 General: Appears in no apparent distress, Behavior is appropriate for age, cooperative. js13 Pain: Location: left foot. Neurological: Level of Consciousness is awake, alert. Respiratory: Airway is patent Respiratory effort is even, unlabored, Respiratory pattern is regular, symmetrical. Derm: Skin is pink, warm & dry. 16:51 General: Appears in no apparent distress, Behavior is appropriate for age, cooperative. js13 Pain: Location: left foot Pain currently is 4 out of 10 on a pain scale. Neurological: Level of Consciousness is awake, alert. Respiratory: Airway is patent Respiratory effort is even, unlabored, Respiratory pattern is regular, symmetrical. Derm: Skin is pink, warm & dry. 17:18 Adult Sepsis Screening: The patient does not have new or worsening altered mentation. js13 Patient's respiratory rate is less than 22. Systolic blood pressure is greater than 100. Patient has a qSOFA score of 0- Negative Sepsis Screen. General: Appears in no apparent distress, Behavior is appropriate for age, cooperative. General: Appears obese, unkempt. Pain: Location: left foot Pain currently is 5 out of 10 on a pain scale. Neurological: Level of Consciousness is awake, alert. Respiratory: Airway is patent Respiratory effort is even, unlabored, Respiratory pattern is regular, symmetrical. Derm: Skin is pink, warm & dry. Vital Signs: 13:58 BP 151 / 81; Pulse 122; Resp 22 S; Temp 97.7(O); Pulse Ox 96% on R/A; Weight 224.53 kg gr2 (R); Height 5 ft. 8 in. (172.72 cm) (R); Pain 9/10; 16:53 BP 140 / 66; Pulse 109; Resp 18; Temp 97.3(O); Pulse Ox 97% on R/A; ct3 13:58 Body Mass Index 75.26 (224.53 kg, 172.72 cm) gr2 Vitals: 13:58 Log In Time: May 28, 2016 at 13:58. gr2 ED Course: 13:57 Patient visited by Maurice Osman. gr2 13:57 Darvin Abbasi is Private Physician. gr2 13:57 Patient moved to Waiting gr2 13:59 Patient visited by Maurice Osman. gr2 13:59 Patient moved to Pre RCE gr2 14:04 Triage Initiated dls 14:11 Patient moved to 10 ms18 14:27 Patient visited by Dave Castelan PCA. mdr 14:29 Kwame Haywood FNP is PHCP. ke 14:29 Patient visited by Kwame Haywood FNP. ke 14:29 Patient visited by Kwame Haywood FNP. ke 14:44 The patient / caregiver is instructed regarding the plan of care and ED course. js13 14:47 Patient visited by Shelli Núñez RN. js13 15:00 Wound Culture - Most Extremities Sent. js13 15:14 Patient moved to Radiology es5 15:14 Patient moved to 10 es5 15:17 Patient visited by Kwame Haywood FNP. ke 15:22 Shelli Núñez,KASSANDRA is Primary Nurse. js13 15:48 Patient visited by Kwame Haywood FNP. ke 15:58 BLOOD CULTURES Sent. js13 16:10 Patient visited by Kwame Haywood FNP. ke 16:19 Foot, Complete Returned. EDMS 16:24 Patient visited by Shelli Núñez RN. js13 16:48 Patient visited by Kwame Haywood FNP. ke 16:50 Darvin Abbasi is Referral Physician. ke 16:50 Des Posey DPM is Referral Physician. ke 16:51 No IV's were initiated during this patient's visit. No procedures done that require [facility] assistance. 16:56 Patient visited by Chiquis Jesus PCA. ct3 17:41 [facility] [place] Payment Agreement was scanned into [employer] and attached to record. zo 05/29 10:21 T-Sheet-- Draft Copy was scanned into [employer] and attached to record. gb Order Results: Lab Order: CBC; SPEC'M 05/28/16 15:13 Test: WHITE BLOOD COUNT; Value: 8.2; Range: 4.0-10.0; Units: K/mm3; Status: F Test: RED BLOOD COUNT; Value: 6.06; Range: 4.30-6.10; Units: M/mm3; Status: F Test: HEMOGLOBIN; Value: 13.9; Range: 14.0-18.0; Abnormal: Below low normal; Units: g/dl; Status: F Test: HEMATOCRIT; Value: 46.8; Range: 42.0-52.0; Units: %; Status: F Test: MEAN CORPUSCULAR VOLUME; Value: 77.1; Range: 80.0-96.0; Abnormal: Below low normal; Units: fl; Status: F Test: MEAN CORPUSCULAR HEMOGLOBIN; Value: 22.9; Range: 27.0-33.0; Abnormal: Below low normal; Units: pg; Status: F Test: MEAN CORPUSCULAR HGB CONC; Value: 29.7; Range: 32.0-36.5; Abnormal: Below low normal; Units: g/dl; Status: F Test: RED CELL DISTRIBUTION WIDTH; Value: 17.1; Range: 11.5-14.5; Abnormal: Above high normal; Units: %; Status: F Test: PLATELET COUNT, AUTOMATED; Value: 227; Range: 150-450; Units: k/mm3; Status: F Lab Order: BMP; SPEC'M 05/28/16 15:13 Test: GLUCOSE, FASTING; Value: 119; Range: 70-105; Abnormal: Above high normal; Units: MG/DL; Status: F Test: BLOOD UREA NITROGEN; Value: 9; Range: 7-18; Units: MG/DL; Status: F Test: CREATININE FOR GFR; Value: 0.85; Range: 0.70-1.30; Units: MG/DL; Status: F Test: GLOMERULAR FILTRATION RATE; Value: > 60.0; Range: >60; Status: F Test: SODIUM LEVEL; Value: 141; Range: 136-145; Units: MEQ/L; Status: F Test: POTASSIUM SERUM; Value: 4.0; Range: 3.5-5.1; Units: MEQ/L; Status: F Test: CHLORIDE LEVEL; Value: 103; Range: 98-107; Units: MEQ/L; Status: F Test: CARBON DIOXIDE LEVEL; Value: 29; Range: 21-32; Units: MEQ/L; Status: F Test: ANION GAP; Value: 9; Range: 8-16; Units: MEQ/L; Status: F Test: CALCIUM LEVEL; Value: 8.3; Range: 8.5-10.1; Abnormal: Below low normal; Units: MG/DL; Status: F Test Note: ; Units are mL/min/1.73 m2 Chronic Kidney Disease Staging per NKF: Stage I & II GFR >=60 Normal to Mildly Decreased Stage III GFR 30-59 Moderately Decreased Stage IV GFR 15-29 Severely Decreased Stage V GFR <15 Very Little GFR Left ESRD GFR <15 on PRIVATE INVESTIGATOR SURVEILLANCE Lab Order: -Blood Culture; SPEC'M 05/28/16 15:13 Test: BLOOD CULTURE; Value: No growth after 48 hours . All specimens observed; Status: F Test: BLOOD CULTURE; Value: for 5 days. Results final at that time.; Status: F Test: BLOOD CULTURE; Status: F Test: BLOOD CULTURE; Value: No growth after 24 hours . All specimens observed; Status: F Test: BLOOD CULTURE; Value: for 5 days. Results final at that time.; Status: F Test: BLOOD CULTURE; Value: No Growth after 72 hours. All specimens observed; Status: F Test: BLOOD CULTURE; Value: for 7 days. Results final at that time.; Status: F Lab Order: Wound Culture - Most Extremities; SPEC'M 05/28/16 14:57 Test: WOUND CULTURE; Value: <EXTERNAL COMMENT eCWMed> FULL REPORT IN LAB NOTES (eCW and Medent).; Status: F Test: WOUND CULTURE; Value: ORGANISM 1: PROTEUS MIRABILIS; Status: F Test: WOUND CULTURE; Value: PROTEUS MIRABILIS; Status: F Test: WOUND CULTURE; Value: QUANTITY OF GROWTH FEW; Status: F Test: WOUND CULTURE; Value: STAPHYLOCOCCUS SP COAG NEG; Status: F Test: WOUND CULTURE; Value: QUANTITY OF GROWTH FEW; Status: F Test: WOUND CULTURE; Value: ORGANISM 2: STAPHYLOCOCCUS SP COAG NEG; Status: F Test: WOUND CULTURE; Value: PROTEUS MIRABILIS; Status: F Test: WOUND CULTURE; Value: QUANTITY OF GROWTH FEW; Status: F Test: WOUND CULTURE; Value: STAPHYLOCOCCUS SP COAG NEG; Status: F Test: WOUND CULTURE; Value: QUANTITY OF GROWTH FEW; Status: F Test: WOUND CULTURE; Value: GRAM NEG SENSI - VITEK 80; Status: F Test: WOUND CULTURE; Value: Method: VIT2; Status: F Test: WOUND CULTURE; Value: TRIMETHOPRIM/SULFAMETHOXAZOLE <=20 S; Status: F Test: WOUND CULTURE; Value: AMPICILLIN <=2 S; Status: F Test: WOUND CULTURE; Value: GENTAMICIN <=1 S; Status: F Test: WOUND CULTURE; Value: CEFAZOLIN <=4 S; Status: F Test: WOUND CULTURE; Value: LEVOFLOXACIN <=0.12 S; Status: F Test: WOUND CULTURE; Value: TOBRAMYCIN <=1 S; Status: F Test: WOUND CULTURE; Value: CEFTRIAXONE <=1 S; Status: F Test: WOUND CULTURE; Value: CEFTAZIDIME <=1 S; Status: F Test: WOUND CULTURE; Value: AMPICILLIN/SULBACTAM <=2 S; Status: F Test: WOUND CULTURE; Value: PIPERACILLIN/TAZOBACTAM <=4 S; Status: F Test: WOUND CULTURE; Value: AZTREONAM <=1 S; Status: F Test: WOUND CULTURE; Value: ERTAPENEM <=0.5 S; Status: F Test: WOUND CULTURE; Value: MEROPENEM <=0.25 S; Status: F Test: WOUND CULTURE; Value: TIGECYCLINE 4 R; Status: F Test: WOUND CULTURE; Value: CEFEPIME <=1 S; Status: F Test: WOUND CULTURE; Value: GRAM POS SENSI - VITEK 67; Status: F Test: WOUND CULTURE; Value: Method: VIT2; Status: F Test: WOUND CULTURE; Value: TETRACYCLINE <=1 S; Status: F Test: WOUND CULTURE; Value: PENICILLIN G >=0.5 R; Status: F Test: WOUND CULTURE; Value: TRIMETHOPRIM/SULFAMETHOXAZOLE <=10 S; Status: F Test: WOUND CULTURE; Value: ERYTHROMYCIN >=8 R; Status: F Test: WOUND CULTURE; Value: GENTAMICIN <=0.5 S; Status: F Test: WOUND CULTURE; Value: CLINDAMYCIN <=0.25 S; Status: F Test: WOUND CULTURE; Value: OXACILLIN >=4 R; Status: F Test: WOUND CULTURE; Value: VANCOMYCIN 1 S; Status: F Test: WOUND CULTURE; Value: LINEZOLID (ZYVOX) 2 S; Status: F Lab Order: BLOOD CULTURES; SPEC'M 05/28/16 16:01 Test: BLOOD CULTURE; Value: No growth after 48 hours . All specimens observed; Status: F Test: BLOOD CULTURE; Value: for 5 days. Results final at that time.; Status: F Test: BLOOD CULTURE; Status: F Test: BLOOD CULTURE; Value: No growth after 24 hours . All specimens observed; Status: F Test: BLOOD CULTURE; Value: for 5 days. Results final at that time.; Status: F Test: BLOOD CULTURE; Value: No Growth after 72 hours. All specimens observed; Status: F Test: BLOOD CULTURE; Value: for 7 days. Results final at that time.; Status: F Radiology Order: Foot, Complete Test: Foot, Complete REASON FOR EXAMINATION: pain; Left foot series: Portably obtained AP and lateral views.; ; History: Pain.; ; Findings: Two views of the left foot demonstrate marked diffuse soft tissue; swelling particularly in the forefoot. No opaque foreign body or soft tissue gas; is seen. No bony erosive changes seen. Mild midfoot arthritic spurring is seen.; There is mild hallux valgus.; ; Impression:; ; Marked soft tissue swelling. Midfoot spurring. No acute bony abnormality. No; opaque foreign body or soft tissue gas seen.; ; ; Signed by; Evaristo Cedeno MD 05/28/2016 04:48 P; Outcome: 05/28 16:50 Discharge ordered by Provider. 16:51 Discharge Assessment: Patient awake, alert and oriented x 3. No cognitive and/or js13 functional deficits noted. Patient verbalized understanding of disposition instructions. patient administered narcotics - no. The following High Risk Discharge criteria are identified: None. Discharged to home ambulatory, with significant other. Condition: stable. No special radiology studies were completed. Property sent home with patient. :Personal belongings accompany Pt. 17:19 Discharge instructions given to patient, Instructed on discharge instructions, follow js13 up and referral plans. medication usage, Demonstrated understanding of instructions, medications, Pt was receptive of discharge instructions/ teaching. Prescriptions given X 1. 17:20 Patient left the ED. js13 Addendum: 06/02/2016 09:32 Narrative: culture results reviewed pt contacted Rx for Keflex [facility] per pt request. Signatures: Dispatcher [employer] Aurelio Guerra, RN RN Irene Bullock RN RN dls Tiffani Yoo, Reg Reg gb Kwame Haywood, SOCIAL MEDIA DIRECTOR SOCIAL MEDIA DIRECTOR Debi Ramos Consuelo, BIT GRINDER BIT GRINDER ct3 Shelli NúñezRN RN js13 Savannah Danielson es5 Maurice Osman gr2 Essence Kumar RN RN ms18 Dave Castelan, BIT GRINDER BIT GRINDER mdr Corrections: (The following items were deleted from the chart) 05/28 16:57 16:53 BP 140 / 66; Pulse 109bpm; Resp 18bpm; Pulse Ox 97% RA; Temp 97.3F Oral; Pain ct3 10/10; ct3 MTDD
--- NOTE | 2016-06-02 09:33 | EDDOCDS ---
Physician Documentation [facility] Name: Walt Croft Age: 46 yrs Sex: Male : 1970 Arrival Date: 05/28/2016 Time: 13:56 Bed 10 Private MD: Darvin Abbasi MD Disposition: 05/28/16 16:50 Discharged to Home/Self Care. Impression: Pain in left foot. - Condition is Stable. - Discharge Instructions: Pain Without a Known Cause. - Prescriptions for [place] 5- 325 mg Oral Tablet - take 1 tablet by ORAL route every 6 hours As needed MDD: 4 tabs; 20 tablet. - Medication Reconciliation, Local Pharmacy Hours form. - Follow up: Darvin Abbasi; When: 4 - 5 days; Reason: Recheck today's complaints, Continuance of care. Follow up: Des Posey DPM; When: As soon as possible; Reason: Recheck today's complaints, Continuance of care. - Problem is an ongoing problem. - Symptoms are unchanged. - Notes: elevate foot Historical: - Allergies: no known allergies; - Home Meds: 1. pregabalin 25 mg Oral cap twice a day 2. metformin 500 mg Oral tab 1 tab 2 times per day 3. potassium chloride 20 mEq/15 mL Oral liqd 4 times per day 4. furosemide 80 mg Oral tab 1 tab four times a day - PMHx: Diabetes - NIDDM: controlled; lymphedema; - PSHx: vein ablation leg; infusaport; - Social history: Smoking status: Patient uses tobacco products, light tobacco smoker. No barriers to communication noted, The patient speaks fluent Turkmen. - Family history: Not pertinent. - : The pt / caregiver states he / she is not on anticoagulants. Home medication list is obtained from the patient. - Exposure Risk Screening:: None identified. Vital Signs: 05/28 13:58 BP 151 / 81; Pulse 122; Resp 22 S; Temp 97.7(O); Pulse Ox 96% on R/A; Weight 224.53 kg gr2 / 495 lbs (R); Height 5 ft. 8 in. (172.72 cm) (R); Pain 9/10; 16:53 BP 140 / 66; Pulse 109; Resp 18; Temp 97.3(O); Pulse Ox 97% on R/A; ct3 13:58 Body Mass Index 75.26 (224.53 kg, 172.72 cm) gr2 MDM: 14:48 -Blood Culture (Adults Only), peripheral from different site, or from device/port/PICC ke etc. if present ordered. 14:48 CBC Ordered. EDMS 14:48 BMP Ordered. EDMS 14:48 -Blood Culture Ordered. EDMS 14:48 Wound Culture - Most Extremities Ordered. EDMS 14:50 Foot, Complete Ordered. EDMS 14:51 -Blood Culture (Adults Only), peripheral from different site, or from device/port/PICC jlf etc. if present complete. 14:52 BLOOD CULTURES Ordered. EDMS 16:10 CBC Reviewed. ke 16:10 BMP Reviewed. ke 16:40 Financial registration complete. zo 17:41 [facility] [place] Payment Agreement was scanned into [employer] and attached to record. zo 05/29 10:21 T-Sheet-- Draft Copy was scanned into [employer] and attached to record. gb 06/02 08:32 -Blood Culture Reviewed. sd1 08:32 Wound Culture - Most Extremities Reviewed. sd1 08:32 BLOOD CULTURES Reviewed. sd1 08:32 Foot, Complete Reviewed. sd1 Signatures: Dispatcher [employer] EDTeresa Chirinos MD MD sd1 Irene Henriquez, RN RN Tiffani Orozco, Kwame Domínguez, DRYING ROOM SUPERVISOR DRYING ROOM SUPERVISOR Debi Ramos Jennifer,RN RN js13 Checo Rogers, CESILIA DESIGN ENGINEER jl The chart was reviewed and I authenticate all verbal orders and agree with the evaluation and treatment provided.Corrections: (The following items were deleted from the chart) 05/28 15:37 15:31 Wound Culture - Extremity+CLARK ordered. EDMS EDMS 16:51 14:48 Misc. Nursing Order ordered. joaquín [email or web address] Attachments: 17:41 [facility] [place] Payment Agreement zo 05/29 10:21 T-Sheet-- Draft Copy gb MTDD
--- NOTE | 2016-06-02 09:33 | EDDOCDS ---
Physician Documentation [facility] Name: Walt Croft Age: 46 yrs Sex: Male : 1970 Arrival Date: 05/28/2016 Time: 13:56 Bed 10 Private MD: Darvin Abbasi MD Disposition: 05/28/16 16:50 Discharged to Home/Self Care. Impression: Pain in left foot. - Condition is Stable. - Discharge Instructions: Pain Without a Known Cause. - Prescriptions for [place] 5- 325 mg Oral Tablet - take 1 tablet by ORAL route every 6 hours As needed MDD: 4 tabs; 20 tablet. - Medication Reconciliation, Local Pharmacy Hours form. - Follow up: Darvin Abbasi; When: 4 - 5 days; Reason: Recheck today's complaints, Continuance of care. Follow up: Des Posey DPM; When: As soon as possible; Reason: Recheck today's complaints, Continuance of care. - Problem is an ongoing problem. - Symptoms are unchanged. - Notes: elevate foot Historical: - Allergies: no known allergies; - Home Meds: 1. pregabalin 25 mg Oral cap twice a day 2. metformin 500 mg Oral tab 1 tab 2 times per day 3. potassium chloride 20 mEq/15 mL Oral liqd 4 times per day 4. furosemide 80 mg Oral tab 1 tab four times a day - PMHx: Diabetes - NIDDM: controlled; lymphedema; - PSHx: vein ablation leg; infusaport; - Social history: Smoking status: Patient uses tobacco products, light tobacco smoker. No barriers to communication noted, The patient speaks fluent Kiswahili. - Family history: Not pertinent. - : The pt / caregiver states he / she is not on anticoagulants. Home medication list is obtained from the patient. - Exposure Risk Screening:: None identified. Vital Signs: 05/28 13:58 BP 151 / 81; Pulse 122; Resp 22 S; Temp 97.7(O); Pulse Ox 96% on R/A; Weight 224.53 kg gr2 / 495 lbs (R); Height 5 ft. 8 in. (172.72 cm) (R); Pain 9/10; 16:53 BP 140 / 66; Pulse 109; Resp 18; Temp 97.3(O); Pulse Ox 97% on R/A; ct3 13:58 Body Mass Index 75.26 (224.53 kg, 172.72 cm) gr2 MDM: 14:48 -Blood Culture (Adults Only), peripheral from different site, or from device/port/PICC ke etc. if present ordered. 14:48 CBC Ordered. EDMS 14:48 BMP Ordered. EDMS 14:48 -Blood Culture Ordered. EDMS 14:48 Wound Culture - Most Extremities Ordered. EDMS 14:50 Foot, Complete Ordered. EDMS 14:51 -Blood Culture (Adults Only), peripheral from different site, or from device/port/PICC jlf etc. if present complete. 14:52 BLOOD CULTURES Ordered. EDMS 16:10 CBC Reviewed. ke 16:10 BMP Reviewed. ke 16:40 Financial registration complete. zo 17:41 [facility] Payment Agreement was scanned into [employer] and attached to record. zo 05/29 10:21 T-Sheet-- Draft Copy was scanned into [employer] and attached to record. gb 06/02 08:32 -Blood Culture Reviewed. sd1 08:32 Wound Culture - Most Extremities Reviewed. sd1 08:32 BLOOD CULTURES Reviewed. sd1 08:32 Foot, Complete Reviewed. sd1 Signatures: Dispatcher [employer] EDTeresa Chirinos MD MD sd1 Irene Henriquez, RN RN Tiffani Orozco, Kwame Domínguez, IT QUALITY ASSURANCE ANALYST IT QUALITY ASSURANCE ANALYST Debi Ramos Jennifer,RN RN js13 Checo Rogers, CESILIA WORKS MANAGER jl The chart was reviewed and I authenticate all verbal orders and agree with the evaluation and treatment provided.Corrections: (The following items were deleted from the chart) 05/28 15:37 15:31 Wound Culture - Extremity+CLARK ordered. EDMS EDMS 16:51 14:48 Misc. Nursing Order ordered. joaquín [email or web address] Attachments: 17:41 [facility] Payment Agreement zo 05/29 10:21 T-Sheet-- Draft Copy gb MTDD
--- NOTE | 2016-06-02 09:34 | EDDOCDS ---
Nurse's Notes [facility] Name: Walt Croft Age: 46 yrs Sex: Male : 1970 Arrival Date: 05/28/2016 Time: 13:56 Bed 10 Private MD: Darvin Abbasi MD Diagnosis: Pain in left foot Presentation: 05/28 14:03 Presenting complaint: Patient states: Pt presents with pain and pressure left heel dls onset one week ago denies injury. Pt has a difficulty ambulating recently dx with diabetes. Adult Sepsis Screening: The patient does not have new or worsening altered mentation. Patient has a respiratory rate of greater than or equal to 22 (1 point). Systolic blood pressure is greater than 100. Patient has a qSOFA score of 1- Negative Sepsis Screen. Suicide/Homicide risk assessment- the patient denies having any suicidal and/or homicidal ideations and does not present with any other emotional, behavioral or mental health complaints. Status: Patient is not a resident services coordinator or dependent. Transition of care: patient was not received from another setting of care. 14:03 Acuity: JIGNESH Level 3 dls 14:03 Method Of Arrival: Walkin/Carried/Asstd dls Triage Assessment: 14:08 General: Appears obese, uncomfortable, Behavior is cooperative. Pain: Pain currently is dls 10 out of 10 on a pain scale. HIV screening NA for this visit Offered previously. Historical: - Allergies: no known allergies; - Home Meds: 1. pregabalin 25 mg Oral cap twice a day 2. metformin 500 mg Oral tab 1 tab 2 times per day 3. potassium chloride 20 mEq/15 mL Oral liqd 4 times per day 4. furosemide 80 mg Oral tab 1 tab four times a day - PMHx: Diabetes - NIDDM: controlled; lymphedema; - PSHx: vein ablation leg; infusaport; - Social history: Smoking status: Patient uses tobacco products, light tobacco smoker. No barriers to communication noted, The patient speaks fluent [place]. - Family history: Not pertinent. - : The pt / caregiver states he / she is not on anticoagulants. Home medication list is obtained from the patient. - Exposure Risk Screening:: None identified. Screenin:44 Screening information is obtained from the patient. Fall risk: At risk due to gait js13 disturbance. Assistance ADL's: requires no assistance with activities of daily living. Abuse/DV Screen: The patient / caregiver reports he/she is: not in a situation that causes fear, pain or injury. Nutritional screening: No deficits noted. Advance Directives: There is no active DNR order. home support is adequate. Assessment: 14:44 Pain: Location: left foot. Neurological: Level of Consciousness is awake, alert. js13 Respiratory: Airway is patent Respiratory effort is even, unlabored, Respiratory pattern is regular, symmetrical. Derm: Skin is pink, warm & dry. Musculoskeletal: Circulation, motion, and sensation intact. 16:00 General: Appears in no apparent distress, Behavior is appropriate for age, cooperative. js13 Pain: Location: left foot. Neurological: Level of Consciousness is awake, alert. Respiratory: Airway is patent Respiratory effort is even, unlabored, Respiratory pattern is regular, symmetrical. Derm: Skin is pink, warm & dry. 16:51 General: Appears in no apparent distress, Behavior is appropriate for age, cooperative. js13 Pain: Location: left foot Pain currently is 4 out of 10 on a pain scale. Neurological: Level of Consciousness is awake, alert. Respiratory: Airway is patent Respiratory effort is even, unlabored, Respiratory pattern is regular, symmetrical. Derm: Skin is pink, warm & dry. 17:18 Adult Sepsis Screening: The patient does not have new or worsening altered mentation. js13 Patient's respiratory rate is less than 22. Systolic blood pressure is greater than 100. Patient has a qSOFA score of 0- Negative Sepsis Screen. General: Appears in no apparent distress, Behavior is appropriate for age, cooperative. General: Appears obese, unkempt. Pain: Location: left foot Pain currently is 5 out of 10 on a pain scale. Neurological: Level of Consciousness is awake, alert. Respiratory: Airway is patent Respiratory effort is even, unlabored, Respiratory pattern is regular, symmetrical. Derm: Skin is pink, warm & dry. Vital Signs: 13:58 BP 151 / 81; Pulse 122; Resp 22 S; Temp 97.7(O); Pulse Ox 96% on R/A; Weight 224.53 kg gr2 (R); Height 5 ft. 8 in. (172.72 cm) (R); Pain 9/10; 16:53 BP 140 / 66; Pulse 109; Resp 18; Temp 97.3(O); Pulse Ox 97% on R/A; ct3 13:58 Body Mass Index 75.26 (224.53 kg, 172.72 cm) gr2 Vitals: 13:58 Log In Time: May 28, 2016 at 13:58. gr2 ED Course: 13:57 Patient visited by Maurice Osman. gr2 13:57 Darvin Abbasi is Private Physician. gr2 13:57 Patient moved to Waiting gr2 13:59 Patient visited by Maurice Osman. gr2 13:59 Patient moved to Pre RCE gr2 14:04 Triage Initiated dls 14:11 Patient moved to 10 ms18 14:27 Patient visited by Dave Castelan PCA. mdr 14:29 Kwame Haywood FNP is PHCP. ke 14:29 Patient visited by Kwame Haywood FNP. ke 14:29 Patient visited by Kwame Haywood FNP. ke 14:44 The patient / caregiver is instructed regarding the plan of care and ED course. js13 14:47 Patient visited by Shelli Núñez RN. js13 15:00 Wound Culture - Most Extremities Sent. js13 15:14 Patient moved to Radiology es5 15:14 Patient moved to 10 es5 15:17 Patient visited by Kwame Haywood FNP. ke 15:22 Shelli Núñez,KASSANDRA is Primary Nurse. js13 15:48 Patient visited by Kwame Haywood FNP. ke 15:58 BLOOD CULTURES Sent. js13 16:10 Patient visited by Kwame Haywood FNP. ke 16:19 Foot, Complete Returned. EDMS 16:24 Patient visited by Shelli Núñez RN. js13 16:48 Patient visited by Kwame Haywood FNP. ke 16:50 Darvin Abbasi is Referral Physician. ke 16:50 Des Posey DPM is Referral Physician. ke 16:51 No IV's were initiated during this patient's visit. No procedures done that require [facility] assistance. 16:56 Patient visited by Chiquis Jesus PCA. ct3 17:41 [facility] Payment Agreement was scanned into [employer] and attached to record. zo 05/29 10:21 T-Sheet-- Draft Copy was scanned into [employer] and attached to record. gb Order Results: Lab Order: CBC; SPEC'M 05/28/16 15:13 Test: WHITE BLOOD COUNT; Value: 8.2; Range: 4.0-10.0; Units: K/mm3; Status: F Test: RED BLOOD COUNT; Value: 6.06; Range: 4.30-6.10; Units: M/mm3; Status: F Test: HEMOGLOBIN; Value: 13.9; Range: 14.0-18.0; Abnormal: Below low normal; Units: g/dl; Status: F Test: HEMATOCRIT; Value: 46.8; Range: 42.0-52.0; Units: %; Status: F Test: MEAN CORPUSCULAR VOLUME; Value: 77.1; Range: 80.0-96.0; Abnormal: Below low normal; Units: fl; Status: F Test: MEAN CORPUSCULAR HEMOGLOBIN; Value: 22.9; Range: 27.0-33.0; Abnormal: Below low normal; Units: pg; Status: F Test: MEAN CORPUSCULAR HGB CONC; Value: 29.7; Range: 32.0-36.5; Abnormal: Below low normal; Units: g/dl; Status: F Test: RED CELL DISTRIBUTION WIDTH; Value: 17.1; Range: 11.5-14.5; Abnormal: Above high normal; Units: %; Status: F Test: PLATELET COUNT, AUTOMATED; Value: 227; Range: 150-450; Units: k/mm3; Status: F Lab Order: BMP; SPEC'M 05/28/16 15:13 Test: GLUCOSE, FASTING; Value: 119; Range: 70-105; Abnormal: Above high normal; Units: MG/DL; Status: F Test: BLOOD UREA NITROGEN; Value: 9; Range: 7-18; Units: MG/DL; Status: F Test: CREATININE FOR GFR; Value: 0.85; Range: 0.70-1.30; Units: MG/DL; Status: F Test: GLOMERULAR FILTRATION RATE; Value: > 60.0; Range: >60; Status: F Test: SODIUM LEVEL; Value: 141; Range: 136-145; Units: MEQ/L; Status: F Test: POTASSIUM SERUM; Value: 4.0; Range: 3.5-5.1; Units: MEQ/L; Status: F Test: CHLORIDE LEVEL; Value: 103; Range: 98-107; Units: MEQ/L; Status: F Test: CARBON DIOXIDE LEVEL; Value: 29; Range: 21-32; Units: MEQ/L; Status: F Test: ANION GAP; Value: 9; Range: 8-16; Units: MEQ/L; Status: F Test: CALCIUM LEVEL; Value: 8.3; Range: 8.5-10.1; Abnormal: Below low normal; Units: MG/DL; Status: F Test Note: ; Units are mL/min/1.73 m2 Chronic Kidney Disease Staging per NKF: Stage I & II GFR >=60 Normal to Mildly Decreased Stage III GFR 30-59 Moderately Decreased Stage IV GFR 15-29 Severely Decreased Stage V GFR <15 Very Little GFR Left ESRD GFR <15 on HARP REGULATOR Lab Order: -Blood Culture; SPEC'M 05/28/16 15:13 Test: BLOOD CULTURE; Value: No growth after 48 hours . All specimens observed; Status: F Test: BLOOD CULTURE; Value: for 5 days. Results final at that time.; Status: F Test: BLOOD CULTURE; Status: F Test: BLOOD CULTURE; Value: No growth after 24 hours . All specimens observed; Status: F Test: BLOOD CULTURE; Value: for 5 days. Results final at that time.; Status: F Test: BLOOD CULTURE; Value: No Growth after 72 hours. All specimens observed; Status: F Test: BLOOD CULTURE; Value: for 7 days. Results final at that time.; Status: F Lab Order: Wound Culture - Most Extremities; SPEC'M 05/28/16 14:57 Test: WOUND CULTURE; Value: <EXTERNAL COMMENT eCWMed> FULL REPORT IN LAB NOTES (eCW and Medent).; Status: F Test: WOUND CULTURE; Value: ORGANISM 1: PROTEUS MIRABILIS; Status: F Test: WOUND CULTURE; Value: PROTEUS MIRABILIS; Status: F Test: WOUND CULTURE; Value: QUANTITY OF GROWTH FEW; Status: F Test: WOUND CULTURE; Value: STAPHYLOCOCCUS SP COAG NEG; Status: F Test: WOUND CULTURE; Value: QUANTITY OF GROWTH FEW; Status: F Test: WOUND CULTURE; Value: ORGANISM 2: STAPHYLOCOCCUS SP COAG NEG; Status: F Test: WOUND CULTURE; Value: PROTEUS MIRABILIS; Status: F Test: WOUND CULTURE; Value: QUANTITY OF GROWTH FEW; Status: F Test: WOUND CULTURE; Value: STAPHYLOCOCCUS SP COAG NEG; Status: F Test: WOUND CULTURE; Value: QUANTITY OF GROWTH FEW; Status: F Test: WOUND CULTURE; Value: GRAM NEG SENSI - VITEK 80; Status: F Test: WOUND CULTURE; Value: Method: VIT2; Status: F Test: WOUND CULTURE; Value: TRIMETHOPRIM/SULFAMETHOXAZOLE <=20 S; Status: F Test: WOUND CULTURE; Value: AMPICILLIN <=2 S; Status: F Test: WOUND CULTURE; Value: GENTAMICIN <=1 S; Status: F Test: WOUND CULTURE; Value: CEFAZOLIN <=4 S; Status: F Test: WOUND CULTURE; Value: LEVOFLOXACIN <=0.12 S; Status: F Test: WOUND CULTURE; Value: TOBRAMYCIN <=1 S; Status: F Test: WOUND CULTURE; Value: CEFTRIAXONE <=1 S; Status: F Test: WOUND CULTURE; Value: CEFTAZIDIME <=1 S; Status: F Test: WOUND CULTURE; Value: AMPICILLIN/SULBACTAM <=2 S; Status: F Test: WOUND CULTURE; Value: PIPERACILLIN/TAZOBACTAM <=4 S; Status: F Test: WOUND CULTURE; Value: AZTREONAM <=1 S; Status: F Test: WOUND CULTURE; Value: ERTAPENEM <=0.5 S; Status: F Test: WOUND CULTURE; Value: MEROPENEM <=0.25 S; Status: F Test: WOUND CULTURE; Value: TIGECYCLINE 4 R; Status: F Test: WOUND CULTURE; Value: CEFEPIME <=1 S; Status: F Test: WOUND CULTURE; Value: GRAM POS SENSI - VITEK 67; Status: F Test: WOUND CULTURE; Value: Method: VIT2; Status: F Test: WOUND CULTURE; Value: TETRACYCLINE <=1 S; Status: F Test: WOUND CULTURE; Value: PENICILLIN G >=0.5 R; Status: F Test: WOUND CULTURE; Value: TRIMETHOPRIM/SULFAMETHOXAZOLE <=10 S; Status: F Test: WOUND CULTURE; Value: ERYTHROMYCIN >=8 R; Status: F Test: WOUND CULTURE; Value: GENTAMICIN <=0.5 S; Status: F Test: WOUND CULTURE; Value: CLINDAMYCIN <=0.25 S; Status: F Test: WOUND CULTURE; Value: OXACILLIN >=4 R; Status: F Test: WOUND CULTURE; Value: VANCOMYCIN 1 S; Status: F Test: WOUND CULTURE; Value: LINEZOLID (ZYVOX) 2 S; Status: F Lab Order: BLOOD CULTURES; SPEC'M 05/28/16 16:01 Test: BLOOD CULTURE; Value: No growth after 48 hours . All specimens observed; Status: F Test: BLOOD CULTURE; Value: for 5 days. Results final at that time.; Status: F Test: BLOOD CULTURE; Status: F Test: BLOOD CULTURE; Value: No growth after 24 hours . All specimens observed; Status: F Test: BLOOD CULTURE; Value: for 5 days. Results final at that time.; Status: F Test: BLOOD CULTURE; Value: No Growth after 72 hours. All specimens observed; Status: F Test: BLOOD CULTURE; Value: for 7 days. Results final at that time.; Status: F Radiology Order: Foot, Complete Test: Foot, Complete REASON FOR EXAMINATION: pain; Left foot series: Portably obtained AP and lateral views.; ; History: Pain.; ; Findings: Two views of the left foot demonstrate marked diffuse soft tissue; swelling particularly in the forefoot. No opaque foreign body or soft tissue gas; is seen. No bony erosive changes seen. Mild midfoot arthritic spurring is seen.; There is mild hallux valgus.; ; Impression:; ; Marked soft tissue swelling. Midfoot spurring. No acute bony abnormality. No; opaque foreign body or soft tissue gas seen.; ; ; Signed by; Evaristo Cedeno MD 05/28/2016 04:48 P; Outcome: 05/28 16:50 Discharge ordered by Provider. 16:51 Discharge Assessment: Patient awake, alert and oriented x 3. No cognitive and/or js13 functional deficits noted. Patient verbalized understanding of disposition instructions. patient administered narcotics - no. The following High Risk Discharge criteria are identified: None. Discharged to home ambulatory, with significant other. Condition: stable. No special radiology studies were completed. Property sent home with patient. :Personal belongings accompany Pt. 17:19 Discharge instructions given to patient, Instructed on discharge instructions, follow js13 up and referral plans. medication usage, Demonstrated understanding of instructions, medications, Pt was receptive of discharge instructions/ teaching. Prescriptions given X 1. 17:20 Patient left the ED. js13 Addendum: 06/02/2016 09:32 Narrative: culture results reviewed pt contacted Rx for Keflex [facility] per pt request. Signatures: Dispatcher [employer] Aurelio Guerra, RN RN Irene Bullock RN RN dls Tiffani Yoo, Reg Reg gb Kwame Haywood, HOSE MAKER HOSE MAKER Debi Ramos Consuelo, DISTRIBUTION ACCOUNTING CLERK DISTRIBUTION ACCOUNTING CLERK ct3 Shelli NúñezRN RN js13 Savannah Danielson es5 Maurice Osman gr2 Essence Kumar RN RN ms18 Dave Castelan, DISTRIBUTION ACCOUNTING CLERK DISTRIBUTION ACCOUNTING CLERK mdr Corrections: (The following items were deleted from the chart) 05/28 16:57 16:53 BP 140 / 66; Pulse 109bpm; Resp 18bpm; Pulse Ox 97% RA; Temp 97.3F Oral; Pain ct3 10/10; ct3 Chart Complete MTDD
--- NOTE | 2016-06-02 09:34 | EDDOCDS ---
Physician Documentation [facility] Name: Walt Croft Age: 46 yrs Sex: Male : 1970 Arrival Date: 05/28/2016 Time: 13:56 Bed 10 Private MD: Darvin Abbasi MD Disposition: 05/28/16 16:50 Discharged to Home/Self Care. Impression: Pain in left foot. - Condition is Stable. - Discharge Instructions: Pain Without a Known Cause. - Prescriptions for [place] 5- 325 mg Oral Tablet - take 1 tablet by ORAL route every 6 hours As needed MDD: 4 tabs; 20 tablet. - Medication Reconciliation, Local Pharmacy Hours form. - Follow up: Darvin Abbasi; When: 4 - 5 days; Reason: Recheck today's complaints, Continuance of care. Follow up: Des Posey DPM; When: As soon as possible; Reason: Recheck today's complaints, Continuance of care. - Problem is an ongoing problem. - Symptoms are unchanged. - Notes: elevate foot Historical: - Allergies: no known allergies; - Home Meds: 1. pregabalin 25 mg Oral cap twice a day 2. metformin 500 mg Oral tab 1 tab 2 times per day 3. potassium chloride 20 mEq/15 mL Oral liqd 4 times per day 4. furosemide 80 mg Oral tab 1 tab four times a day - PMHx: Diabetes - NIDDM: controlled; lymphedema; - PSHx: vein ablation leg; infusaport; - Social history: Smoking status: Patient uses tobacco products, light tobacco smoker. No barriers to communication noted, The patient speaks fluent Divehi. - Family history: Not pertinent. - : The pt / caregiver states he / she is not on anticoagulants. Home medication list is obtained from the patient. - Exposure Risk Screening:: None identified. Vital Signs: 05/28 13:58 BP 151 / 81; Pulse 122; Resp 22 S; Temp 97.7(O); Pulse Ox 96% on R/A; Weight 224.53 kg gr2 / 495 lbs (R); Height 5 ft. 8 in. (172.72 cm) (R); Pain 9/10; 16:53 BP 140 / 66; Pulse 109; Resp 18; Temp 97.3(O); Pulse Ox 97% on R/A; ct3 13:58 Body Mass Index 75.26 (224.53 kg, 172.72 cm) gr2 MDM: 14:48 -Blood Culture (Adults Only), peripheral from different site, or from device/port/PICC ke etc. if present ordered. 14:48 CBC Ordered. EDMS 14:48 BMP Ordered. EDMS 14:48 -Blood Culture Ordered. EDMS 14:48 Wound Culture - Most Extremities Ordered. EDMS 14:50 Foot, Complete Ordered. EDMS 14:51 -Blood Culture (Adults Only), peripheral from different site, or from device/port/PICC jlf etc. if present complete. 14:52 BLOOD CULTURES Ordered. EDMS 16:10 CBC Reviewed. ke 16:10 BMP Reviewed. ke 16:40 Financial registration complete. zo 17:41 [facility] Payment Agreement was scanned into [employer] and attached to record. zo 05/29 10:21 T-Sheet-- Draft Copy was scanned into [employer] and attached to record. gb 06/02 08:32 -Blood Culture Reviewed. sd1 08:32 Wound Culture - Most Extremities Reviewed. sd1 08:32 BLOOD CULTURES Reviewed. sd1 08:32 Foot, Complete Reviewed. sd1 Signatures: Dispatcher [employer] EDTeresa Chirinos MD MD sd1 Irene Henriquez, RN RN Tiffani Orozco, Kwame Domínguez, JUDO INSTRUCTOR JUDO INSTRUCTOR Debi Ramos Jennifer,RN RN js13 Checo Rogers, CESILIA HELICOPTER MECHANIC jl The chart was reviewed and I authenticate all verbal orders and agree with the evaluation and treatment provided.Corrections: (The following items were deleted from the chart) 05/28 15:37 15:31 Wound Culture - Extremity+CLARK ordered. EDMS EDMS 16:51 14:48 Misc. Nursing Order ordered. joaquín [email or web address] Attachments: 17:41 [facility] Payment Agreement zo 05/29 10:21 T-Sheet-- Draft Copy gb Chart Complete MTDD
--- NOTE | 2016-06-02 09:34 | EDDOCDS ---
Physician Documentation [facility] Name: Walt Croft Age: 46 yrs Sex: Male : 1970 Arrival Date: 05/28/2016 Time: 13:56 Bed 10 Private MD: Darvin Abbasi MD Disposition: 05/28/16 16:50 Discharged to Home/Self Care. Impression: Pain in left foot. - Condition is Stable. - Discharge Instructions: Pain Without a Known Cause. - Prescriptions for [place] 5- 325 mg Oral Tablet - take 1 tablet by ORAL route every 6 hours As needed MDD: 4 tabs; 20 tablet. - Medication Reconciliation, Local Pharmacy Hours form. - Follow up: Darvin Abbasi; When: 4 - 5 days; Reason: Recheck today's complaints, Continuance of care. Follow up: Des Posey DPM; When: As soon as possible; Reason: Recheck today's complaints, Continuance of care. - Problem is an ongoing problem. - Symptoms are unchanged. - Notes: elevate foot Historical: - Allergies: no known allergies; - Home Meds: 1. pregabalin 25 mg Oral cap twice a day 2. metformin 500 mg Oral tab 1 tab 2 times per day 3. potassium chloride 20 mEq/15 mL Oral liqd 4 times per day 4. furosemide 80 mg Oral tab 1 tab four times a day - PMHx: Diabetes - NIDDM: controlled; lymphedema; - PSHx: vein ablation leg; infusaport; - Social history: Smoking status: Patient uses tobacco products, light tobacco smoker. No barriers to communication noted, The patient speaks fluent Romansh. - Family history: Not pertinent. - : The pt / caregiver states he / she is not on anticoagulants. Home medication list is obtained from the patient. - Exposure Risk Screening:: None identified. Vital Signs: 05/28 13:58 BP 151 / 81; Pulse 122; Resp 22 S; Temp 97.7(O); Pulse Ox 96% on R/A; Weight 224.53 kg gr2 / 495 lbs (R); Height 5 ft. 8 in. (172.72 cm) (R); Pain 9/10; 16:53 BP 140 / 66; Pulse 109; Resp 18; Temp 97.3(O); Pulse Ox 97% on R/A; ct3 13:58 Body Mass Index 75.26 (224.53 kg, 172.72 cm) gr2 MDM: 14:48 -Blood Culture (Adults Only), peripheral from different site, or from device/port/PICC ke etc. if present ordered. 14:48 CBC Ordered. EDMS 14:48 BMP Ordered. EDMS 14:48 -Blood Culture Ordered. EDMS 14:48 Wound Culture - Most Extremities Ordered. EDMS 14:50 Foot, Complete Ordered. EDMS 14:51 -Blood Culture (Adults Only), peripheral from different site, or from device/port/PICC jlf etc. if present complete. 14:52 BLOOD CULTURES Ordered. EDMS 16:10 CBC Reviewed. ke 16:10 BMP Reviewed. ke 16:40 Financial registration complete. zo 17:41 [facility] [place] Payment Agreement was scanned into [employer] and attached to record. zo 05/29 10:21 T-Sheet-- Draft Copy was scanned into [employer] and attached to record. gb 06/02 08:32 -Blood Culture Reviewed. sd1 08:32 Wound Culture - Most Extremities Reviewed. sd1 08:32 BLOOD CULTURES Reviewed. sd1 08:32 Foot, Complete Reviewed. sd1 Signatures: Dispatcher [employer] EDTeresa Chirinos MD MD sd1 Irene Henriquez, RN RN Tiffani Orozco, Kwame Domínguez, PEDIATRIC MEDICAL ASSISTANT PEDIATRIC MEDICAL ASSISTANT Debi Ramos Jennifer,RN RN js13 Checo Rogers, CESILIA SIGNAL HELPER jl The chart was reviewed and I authenticate all verbal orders and agree with the evaluation and treatment provided.Corrections: (The following items were deleted from the chart) 05/28 15:37 15:31 Wound Culture - Extremity+CLARK ordered. EDMS EDMS 16:51 14:48 Misc. Nursing Order ordered. joaquín [email or web address] Attachments: 17:41 [facility] [place] Payment Agreement zo 05/29 10:21 T-Sheet-- Draft Copy gb Chart Complete MTDD
== END 2016-05-28 17:20 | disposition home or self-care (01) ==
LOC: M ED 13:56
DX: M79.89 Other specified soft tissue disorders (principal); M77.9 Enthesopathy, unspecified; M79.672 Pain in left foot; E11.9 Type 2 diabetes mellitus without complications; F17.200 Nicotine dependence, unspecified, uncomplicated; Z79.899 Other long term (current) drug therapy

== ENCOUNTER 2016-06-06 11:26 | Outpatient (CLI) | payer MEDICARE, MEDICAID ==
[~2016-06-06 11:26] MED LIST changes: +SODIUM CHLORIDE 0.9% INJ 10 ML SYR IV SCH
== END 2016-06-06 13:00 | disposition home or self-care (01) ==
LOC: M INFU 11:26
PROVIDERS: ATTEND Family Medicine
DX: L03.119 Cellulitis of unspecified part of limb (principal); E11.65 Type 2 diabetes mellitus with hyperglycemia; Z79.82 Long term (current) use of aspirin; Z79.899 Other long term (current) drug therapy

== ENCOUNTER → 2016-06-08 | Outpatient (CLI) | payer MEDICARE, MEDICAID ==
[~2016-06-08] MED LIST changes: -SODIUM CHLORIDE 0.9% INJ 10 ML SYR IV SCH
--- NOTE | 2016-06-08 10:36 | REP ---
MRI study of the left foot without contrast: History: Left foot and heel pain. Infection found in wound. Comparison radiographs May 28, 2016. Technique: Sagittal, axial, and coronal imaging planes are utilized for T1, proton density and T2-weighted scans obtained in the usual fashion with and without fat saturation. MRI findings: There is marked diffuse edema throughout the soft tissues of the foot and ankle. This is most pronounced in the subcutaneous compartment and is compatible with lymph edema. There is evidence of dermal thickening and dermal edema as well. There is no evidence to suggest soft tissue abscess or opaque foreign body. There is irregularity of the skin at the medial aspect of the heel. Cortical and medullary bone signal intensity are normal in the hindfoot, midfoot, and forefoot. Plantar fascia is smooth. No Achilles tendon lesion is appreciated. Impression: Marked diffuse soft tissue edema compatible with lymph edema. Soft tissue irregularity and skin irregularity at the heel, question skin wound. There is no MR evidence of abscess or osteomyelitis. Signed by Evaristo Cedeno MD 06/08/2016 12:52 P
== END ==
LOC: M RAD 07:29
PROVIDERS: ATTEND Family Medicine
DX: R60.0 Localized edema (principal)
CPT/HCPCS: 73718; G0463

== ENCOUNTER 2016-06-19 13:25 | Outpatient (CLI) | payer MEDICARE, MEDICAID ==
[~2016-06-19] VITALS: Ht 172.7 cm; Wt 172.3 kg
[~2016-06-19 13:25] MED LIST changes: +SODIUM CHLORIDE 0.9% INJ 10 ML SYR IV SCH
== END 2016-06-19 13:50 | disposition home or self-care (01) ==
LOC: M INFU 13:25
PROVIDERS: ATTEND Family Medicine
DX: L03.119 Cellulitis of unspecified part of limb (principal); Z79.899 Other long term (current) drug therapy; Z79.82 Long term (current) use of aspirin

== ENCOUNTER 2016-07-02 16:49 | Emergency (ER) | payer MEDICARE, MEDICAID ==
[~2016-07-02 16:49] MED LIST changes: -SODIUM CHLORIDE 0.9% INJ 10 ML SYR IV SCH
[2016-07-02] MEDS ORDERED: EPINEPHrine 1MG/10ML SYRINGE 1.5IN ONE (17:56)
[2016-07-02] MEDS ORDERED: AMMONIA AROMATIC INHALANT (FLOOR STOCK) As Ordered ONE (17:57)
== END 2016-07-02 21:24 | disposition expired ==
LOC: M ED 19:43
DX: I46.9 Cardiac arrest, cause unspecified; R69 Illness, unspecified; M79.89 Other specified soft tissue disorders; I51.9 Heart disease, unspecified; E11.9 Type 2 diabetes mellitus without complications; I10 Essential (primary) hypertension; E78.5 Hyperlipidemia, unspecified; Z79.82 Long term (current) use of aspirin; Z79.899 Other long term (current) drug therapy